=== PATIENT | male | born 1950 | race Caucasian/White ===

== ENCOUNTER 2017-04-20 14:21 | Emergency (ER) | payer MEDICARE, OTHER ==
--- NOTE | 2017-04-20 14:39 | UC ---
Bite Injury/Animal HPI - HPI Summary HPI Summary: Patient had contact witha rabit fuchs, did not have direct bite, fuchs bite his chicken and he tended to the chicken getting blood on his hands - History of Current Complaint Chief Complaint: UCBiteInjury Stated Complaint: RABIES EXPOSURE Time Seen by Provider: 04/20/17 14:30 Hx Obtained From: Patient Severity Currently: None Pain Intensity: 0 Type of Bite: Wild Animal Has Animal Been Immunized?: N/A Animal Available for Observation: No Animal Control Notified: Yes PMH/Surg Hx/FS Hx/Imm Hx Previously Healthy: Yes - Surgical History Surgical History: None - Family History Known Family History: Positive: None - Social History Occupation: Employed Full-time Lives: With Family Alcohol Use: None Substance Use Type: None Smoking Status (MU): Never Smoked Tobacco Have You Smoked in the Last Year: No Review of Systems Constitutional: Negative Skin: Negative Eyes: Negative ENT: Negative Respiratory: Negative Cardiovascular: Negative Gastrointestinal: Negative Genitourinary: Negative Motor: Negative Neurovascular: Negative Musculoskeletal: Negative Neurological: Negative Psychological: Negative Is Patient Immunocompromised?: No All Other Systems Reviewed And Are Negative: Yes Physical Exam Triage Information Reviewed: Yes Appearance: Well-Appearing, No Pain Distress, Well-Nourished Vital Signs Reviewed: Yes Eye Exam: Normal Eyes: Positive: Conjunctiva Clear ENT Exam: Normal ENT: Positive: Normal ENT inspection, Hearing grossly normal. Negative: Nasal congestion, Nasal drainage, Trismus, Muffled/hoarse voice Dental Exam: Normal Neck exam: Normal Neck: Positive: 1 Respiratory Exam: Normal Respiratory: Positive: Chest non-tender, No respiratory distress, No accessory muscle use Cardiovascular Exam: Normal Cardiovascular: Positive: RRR, Pulses Normal, Brisk Capillary Refill Musculoskeletal Exam: Normal Musculoskeletal: Positive: Strength Intact, ROM Intact Neurological Exam: Normal Neurological: Positive: Alert, Muscle Tone Normal Psychological Exam: Normal Skin Exam: Normal Skin: Positive: Other - Patient did not have an actual exposure--his chicken was attacked by a fuchs he tended to his chicken and got blood on his hand-no open areas he was aware of [facility] and Dr. Nima Jorgensen both recommend Hig and vaccine Bite Injury Course/Dx - Course Course Of Treatment: Rig and vaccine per protocol, Refusing tetanus at this time will follow with pcp - Differential Dx/Diagnosis Differential Diagnosis/HQI/PQRI: Laceration, Puncture, Other - Rabies Exposure Provider Diagnoses: Likely Rabies Exposure, PEP started Discharge - Discharge Plan Condition: Stable Disposition: HOME Patient Education Materials: Rabies Vaccine (By injection), Rabies Immune Globulin (By injection), Rabies (ED) Additional Instructions: Follow with the [facility] for vaccines at Day 3,7,14
[2017-04-20] MEDS ORDERED: Rabies VIRUS VACCINE (Imovax)* 2.5 UNIT/ML 1 ML IM ONE (14:54)
[2017-04-20] MEDS ORDERED: Rabies Immune Globulin 10 ML* 150 UNIT/ML VIAL IM ONE (14:56)
[2017-04-20 15:07] VITALS: BP 123/67
== END 2017-04-20 15:31 | disposition home or self-care (01) ==
LOC: UCEAST 14:21
DX: Z20.3 Contact with and (suspected) exposure to rabies (principal)
CPT/HCPCS: 90375; 90471; 96372; 99211; G0463

== ENCOUNTER 2019-01-17 08:35 | Emergency (ER) | payer MEDICARE, OTHER ==
[2019-01-17 08:45] VITALS: BP 104/64
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
== END 2019-01-17 10:25 | disposition home or self-care (01) ==
LOC: UCEAST 08:35
DX: S63.501A Unspecified sprain of right wrist, initial encounter (principal); V18.0XXA Pedal cycle driver injured in noncollision transport accident in nontraffic accident, initial encounter; Y93.55 Activity, bike riding; Y92.410 Unspecified street and highway as the place of occurrence of the external cause; Y99.8 Other external cause status
CPT/HCPCS: 99212; G0463